=== PATIENT | female | born 1940 | race Caucasian/White ===

== ENCOUNTER 2022-08-26 14:46 | Emergency (ER) | payer OTHER ==
[2022-08-26 14:53] VITALS: BP 113/64; PULSE 64; RESP 18; TEMP 98.1; BMI 30.2
[2022-08-26] MEDS ORDERED: FAMOTIDINE 20 MG/50 ML IVPB 20 MG/50 ML MG IVPB ONE ×2 (17:16→17:20)
[2022-08-26] MEDS ORDERED: MAG HYDROX/AL HYDROX/SIMETH 30 ML UNIT-DOSE CUP PO ONE (17:16)
[2022-08-26] MEDS ORDERED: MAG HYDROX/AL HYDROX/SIMETH 30 ML UNIT-DOSE CUP ONE (17:20)
[2022-08-26 18:29] LABS: BASO % 0.8 % (0-2.0); EOS % 1.2 % (0-4.5); HEMATOCRIT 40.2 % (32.4-45.2); LYMPH % 16.9 % (8-40); MCH 29.1 pg (25.7-33.7); MCHC 32.3 g/dl (32.0-36.0); MEAN PLT VOLUME 10.2 fl (7.5-11.1); MONO % 5.1 % (3.8-10.2); PLATELET COUNT 252 10^3/uL (134-434); RBC 4.47 M/mm3 (3.60-5.2); WHITE BLOOD COUNT 9.3 K/mm3 (4.0-10.0)
[2022-08-26 18:41] LABS: ALBUMIN 3.8 g/dl (3.4-5.0); BLOOD UREA NITROGEN 14.4 mg/dL (7-18)
[2022-08-26 18:44] LABS: CREATININE 0.7 mg/dL (0.55-1.3)
[2022-08-26 18:45] LABS: BILIRUBIN,TOTAL 0.6 mg/dL (0.2-1)
== END 2022-08-26 20:17 | disposition home or self-care (01) ==
LOC: JER 14:46
PROC: 3E033NZ Introduction of Analgesics, Hypnotics, Sedatives into Peripheral Vein, Percutaneous Approach (ICD-10-PCS; principal; 2022-08-26)
DX: R10.13 Epigastric pain (principal); R19.7 Diarrhea, unspecified
CPT/HCPCS: 36415; 71046-TC-FY; 80053; 83690; 84484; 85025; 93005; 93010; 99284-25